=== PATIENT | female | born 1985 | race Caucasian/White ===

== ENCOUNTER 2020-05-02 09:09 | Inpatient (IN) ==
[~2020-05-02 09:09] MED LIST: Lactated Ringers 1000 ml BAG 1,000 ML IV SCH; Sodium Citrate/Citric Acid LIQ 15 ML UDC PO ONE
[2020-05-02] MEDS ORDERED: ceFOXitin 2 GM IVPREMIX (*) 2 GM/50 ML BAG ONE (10:11)
[2020-05-02] MEDS ORDERED: Oxytocin 10 UNITS/ML 1 ML VIAL ONE (10:32)
[2020-05-02] MEDS ORDERED: Morphine PF AMP (0.5MG/ML) 5 MG/10 ML AMP ONE (10:32)
[2020-05-02] MEDS ORDERED: Ondansetron 4 mg VIAL 2 MG/ML 2 ml VIAL ONE (11:27)
[2020-05-02] MEDS ORDERED: diPHENhydraMINE IV 50 MG/ML 1 ml VIAL (BENADRYL) ONE (11:27)
[2020-05-02] MEDS ORDERED: fentaNYL 100 mcg/2 ml 50 MCG/ML VIAL IV PRN (11:37)
[2020-05-02] MEDS ORDERED: Naloxone 0.4 mg VIAL 0.4 mg/ml 1 ml VIAL IV PRN ×2 (11:37→11:39)
[2020-05-02] MEDS ORDERED: HYDROcodone/ACETAMIN 5/325 mg TAB PO PRN (11:39)
[2020-05-02] MEDS ORDERED: diPHENhydraMINE IV 50 MG/ML 1 ml VIAL (BENADRYL) IV PRN (11:39)
[2020-05-02] MEDS ORDERED: DiMENhydriNATE IV 50 mg/ml 1 ml VIAL IV PUSH PRN (11:39)
[2020-05-02] MEDS ORDERED: Ondansetron 4 mg VIAL 2 MG/ML 2 ml VIAL IV PRN (11:39)
[2020-05-02] MEDS ORDERED: Dibucaine 1% OINT 28.35 GM TUBE PR PRN (12:17)
[2020-05-02] MEDS ORDERED: Witch Hazel PAD JAR TOPICAL PRN (12:17)
[2020-05-02] MEDS ORDERED: Glycerin ADULT 2.4 gm SUPP PR PRN (12:17)
[2020-05-02] MEDS: Acetaminophen IV 1 GM/100ML 100 ML IVPB PRN ×2 (12:28→20:50)
[2020-05-02] MEDS ORDERED: Oxytocin in LR 20 UNITS/1,000 ML BAG IVPB SCH (13:00)
[2020-05-02] MEDS ORDERED: Lactated Ringers 1000 ml BAG 1,000 ML IV SCH (13:00)
[2020-05-02] MEDS: MESALAMINE 1000 MG PO SCH ×2 (18:27→23:00)
[2020-05-03 07:29] LABS: ABS Basophils 0.1 10^3/ul (0-0.2); ABS Eosinophils 0.1 10^3/ul (0-0.6); ABS Lymphocytes 1.2 10^3/ul (1.0-4.8); ABS Monocytes 0.8 10^3/ul (0-0.8); Eosinophil % 1.2 %; Hematocrit 31 % (35-47); Hemoglobin 10.9 g/dL (12.0-16.0); Lymphocyte % 11.4 %; Mean Corpuscular HGB Conc 35 g/dL (31-36); Mean Corpuscular Hemoglobin 32 pg (27-31); Mean Corpuscular Volume 91 fL (80-97); Platelet Count 114 10^3/uL (150-450); Red Cell Distribution Width 13 % (10-15); White Blood Count 10.7 10^3/uL (3.5-10.8)
[2020-05-03] MEDS: MESALAMINE 1000 MG PO SCH ×2 (08:52→21:10)
[2020-05-03] MEDS: prednisoLONE 1% OPHTH.SUSP 5 ML OPHTH.SUSP BOTH EYES SCH (08:52)
[2020-05-03] MEDS ORDERED: MESALAMINE 1000 MG PO SCH (09:00)
[2020-05-04] MEDS: prednisoLONE 1% OPHTH.SUSP 5 ML OPHTH.SUSP BOTH EYES SCH (09:24)
[2020-05-04] MEDS: MESALAMINE 1000 MG PO SCH ×2 (09:24→20:29)
[2020-05-05] MEDS: prednisoLONE 1% OPHTH.SUSP 5 ML OPHTH.SUSP BOTH EYES SCH (09:06)
[2020-05-05] MEDS: MESALAMINE 1000 MG PO SCH (09:06)
[2020-05-05 09:59] VITALS: BP 135/83
== END 2020-05-05 13:47 | disposition home or self-care (01) | DRG 787 ==
LOC: MCHOB 09:09
PROVIDERS: ADMIT Obstetrics & Gynecology; ATTEND Obstetrics & Gynecology